=== PATIENT | male | born 1925 | race Caucasian/White ===

== ENCOUNTER 2017-03-05 05:36 | Observation (INO) | payer MEDICARE ==
[~2017-03-05] VITALS: Ht 172.7 cm; Wt 77.1 kg
[~2017-03-05 05:36] MED LIST: AEC81 PO; AMLO10TA2 PO; BETA1TAB18 PO; CHLO25TA3 PO; CLON0.1T PO; CLOP75TA32 PO; FURO40TA5 PO; HUM10VIA SQ; HYDR-4154 PO; ISOS20TA7 PO; RANO500T2 PO; SIMV20TA6 PO; TRAM50TA4 PO; TYLENOL ARTHRITIS PO
[2017-03-05] MEDS ORDERED: NITROGLYCERIN 0.4 MG SL TAB SL ONE (06:00)
[2017-03-05] MEDS ORDERED: MORPHINE SULFATE 8 MG/ML VIAL ONE (06:01)
[2017-03-05 06:09] LABS: BASOPHILS % (AUTO) 0.2 % (0.0-5.0); EOSINOPHILS % (AUTO) 1.4 % (0.0-8.0); HEMATOCRIT 32.5 % (42-54); LYMPHOCYTES % (AUTO) 23.6 % (21.0-51.0); MEAN CORPUSCULAR HGB CONC 33.3 g/dL (32.0-36.0); MEAN CORPUSCULAR VOLUME 90.1 fL (79-99); MONOCYTES % (AUTO) 18.9 % (3.0-13.0); NEUTROPHILS % (AUTO) 55.9 % (40.0-77.0); PLATELET COUNT (AUTO) 227 K/uL (130-400); RED CELL DISTRIBUTION WIDTH 14.5 % (11.0-15.5); WHITE BLOOD COUNT (AUTO) 16.3 K/uL (4.8-10.8)
[2017-03-05] MEDS ORDERED: ASPIRIN 81MG TAB.CHEW ONE (06:14)
[2017-03-05] MEDS ORDERED: SODIUM CHLORIDE 0.9% 1000ML 1,000 ML IV ONE (06:14)
[2017-03-05 06:25] LABS: CREATININE 1.6 mg/dL (0.5-1.5); POTASSIUM 4.1 mmol/L (3.5-5.1)
[2017-03-05] MEDS ORDERED: CEFTRIAXONE SODIUM 1 GM ONE (06:31)
[2017-03-05] MEDS ORDERED: ACETAMINOPHEN 325 MG TAB ONE (06:33)
[2017-03-05] MEDS ORDERED: AZITHROMYCIN 250 MG TABLET PO ONE (06:33)
[2017-03-05 06:40] LABS: BILIRUBIN,TOTAL 0.7 mg/dL (0.2-1.0); CREATINE KINASE MB 0.6 ng/mL (0.5-3.6); TOTAL PROTEIN, SERUM 7.2 g/dL (6.0-8.3)
[2017-03-05] MEDS ORDERED: FUROSEMIDE 10 MG/ML 4ML VIAL ONE (07:40)
[2017-03-05 09:01] LABS: APPEARANCE,URINE CLEAR (CLEAR); BILIRUBIN,URINE NEGATIVE (NEGATIVE); COLOR,URINE YELLOW (YELLOW); GLUCOSE, URINE (UA) NEGATIVE (NEGATIVE); KETONES,URINE NEGATIVE (NEGATIVE); LEUKOCYTE ESTERASE ,URINE NEGATIVE (NEGATIVE); NITRATE,URINE NEGATIVE (NEGATIVE); OCCULT BLOOD,URINE NEGATIVE (NEGATIVE); PH,URINE 6.5 (5.0-8.0); PROTEIN,URINE 100 (NEGATIVE); UROBILINOGEN,URINE 0.2 mg/dL (0.2-1.0)
[2017-03-05 09:08] LABS: BACTERIA,URINE Rare /HPF (None Seen); RBC,URINE None Seen /HPF (0-1); SQUAMOUS EPITHELIAL CELL,UR Rare /LPF (0-2); WBC,URINE None Seen /HPF (0-1)
[2017-03-05] MEDS ORDERED: ONDANSETRON HCL 4 MG/2 ML VIAL IV PRN (09:30)
[2017-03-05] MEDS ORDERED: MORPHINE SULFATE 2 MG/ML 1ML SYG IV PRN (09:30)
[2017-03-05] MEDS ORDERED: GUAIFENESIN-DM 200/20 MG 10 ML PO PRN (09:30)
[2017-03-05] MEDS ORDERED: MAG HYDROX/AL HYDROX/SIMETH ES 30 ML SUSP UDCUP PO PRN (09:30)
[2017-03-05] MEDS ORDERED: ACETAMINOPHEN 325 MG TAB PO PRN ×2 (09:30)
[2017-03-05] MEDS ORDERED: LACTULOSE 20 GM/30 ML UDCUP PO PRN (09:30)
[2017-03-05] MEDS ORDERED: HYDRALAZINE HCL 20 MG/ML VIAL IV PRN (09:30)
[2017-03-05] MEDS ORDERED: ACETAMINOPHEN-CODEINE 300/30MG TAB PO PRN ×2 (09:30)
[2017-03-05] MEDS ORDERED: MORPHINE SULFATE 4 MG/1ML SYG IV PRN (09:30)
[2017-03-05] MEDS ORDERED: NITROGLYCERIN 0.4 MG SL TAB SL PRN (09:30)
[2017-03-05 09:57] VITALS: BP 167/80
[2017-03-05] MEDS ORDERED: INS7030 SQ (09:59)
[2017-03-05] MEDS ORDERED: HUM10VIA SQ (09:59)
[2017-03-05] MEDS ORDERED: INSULIN HUMULIN 70/30 100 UNIT/ML 3ML SQ PRN ×2 (10:45)
[2017-03-05] MEDS ORDERED: BENZONATATE 100 MG CAPSULE PO PRN (10:45)
[2017-03-05] MEDS: DOXYCYCLINE 100MG+NS 250ML 250 ML IV SCH ×2 (10:45→21:56)
[2017-03-05] MEDS ORDERED: METHYLPREDNISOLONE SOD SUCC 125MG/2ML VIAL IV SCH (10:45)
[2017-03-05] MEDS ORDERED: POTASSIUM CHLORIDE 20MEQ/100ML 100 ML IV PRN (11:00)
[2017-03-05] MEDS ORDERED: POTASSIUM CHLORIDE 20 MEQ ERTAB PO PRN (11:00)
[2017-03-05] MEDS ORDERED: LIDOCAINE HCL-MPF 1% 2ML VIAL IVP PRN (11:00)
[2017-03-05] MEDS ORDERED: POTASSIUM CHLORIDE 10% ELIXIR 20 MEQ/15 ML UDCUP PO PRN (11:00)
[2017-03-05] MEDS: INSULIN HUMULIN R 100 UNIT/ML 3ML SQ SCH ×3 (11:19→23:08)
[2017-03-05 12:00] VITALS: BP 162/75
[2017-03-05] MEDS: IPRATROPIUM 0.5 MG/2.5 ML INH IH SCH ×3 (13:30→23:26)
[2017-03-05] MEDS: ACETYLCYSTEINE 20% 200MG/ML 4ML VIAL IH SCH ×2 (13:31→23:26)
[2017-03-05 15:24] LABS: CREATINE KINASE MB 0.6 ng/mL (0.5-3.6); TROPONIN I 0.05 ng/mL (0.00-0.06)
[2017-03-05 16:00] VITALS: BP 174/76
[2017-03-05 19:33] VITALS: BP 163/77
[2017-03-05] MEDS: METOPROLOL TARTRATE 25 MG TAB PO SCH (20:42)
[2017-03-05] MEDS: ATORVASTATIN CALCIUM 10 MG TABLET PO SCH (20:42)
[2017-03-05] MEDS: FAMOTIDINE/PF 20 MG/2 ML VIAL IV SCH (20:42)
[2017-03-05] MEDS: RANOLAZINE 500 MG TAB.SR.12H PO SCH (20:42)
[2017-03-05] MEDS: CLONIDINE HCL 0.1 MG TABLET PO SCH (21:00)
[2017-03-05] MEDS ORDERED: DOXYCYCLINE 100MG+NS 250ML 250 ML IV ONE (21:36)
[2017-03-05 23:38] VITALS: BP 133/77
[2017-03-05 23:56] LABS: CREATINE KINASE MB 0.5 ng/mL (0.5-3.6); TROPONIN I 0.06 ng/mL (0.00-0.06)
[2017-03-06] VITALS (7 sets, daily range): BP systolic 135–172; BP diastolic 65–83
[2017-03-06] MEDS: CLONIDINE HCL 0.1 MG TABLET PO SCH (04:07)
[2017-03-06 04:25] LABS: HEMATOCRIT 31.9 % (42-54); MEAN CORPUSCULAR HEMOGLOBIN 30.3 pg (27.0-33.0); MEAN CORPUSCULAR HGB CONC 33.8 g/dL (32.0-36.0); MEAN CORPUSCULAR VOLUME 89.6 fL (79-99); PLATELET COUNT (AUTO) 221 K/uL (130-400); RED BLOOD CELL COUNT(AUTO) 3.56 MIL/uL (4.50-6.20); RED CELL DISTRIBUTION WIDTH 14.8 % (11.0-15.5); WHITE BLOOD COUNT (AUTO) 11.4 K/uL (4.8-10.8)
[2017-03-06 04:37] LABS: CREATININE 1.5 mg/dL (0.5-1.5); POTASSIUM 4.1 mmol/L (3.5-5.1)
[2017-03-06] MEDS: INSULIN HUMULIN R 100 UNIT/ML 3ML SQ SCH ×4 (06:05→21:00)
[2017-03-06] MEDS: IPRATROPIUM 0.5 MG/2.5 ML INH IH SCH ×3 (06:23→18:47)
[2017-03-06] MEDS: ACETYLCYSTEINE 20% 200MG/ML 4ML VIAL IH SCH (06:23)
[2017-03-06] MEDS: ASPIRIN 325 MG TABLET PO SCH (09:00)
[2017-03-06] MEDS: FAMOTIDINE/PF 20 MG/2 ML VIAL IV SCH ×2 (09:20→21:00)
[2017-03-06] MEDS: CLOPIDOGREL BISULFATE 75 MG TAB PO SCH (09:21)
[2017-03-06] MEDS: ISOSORBIDE MONONITRATE 20 MG TABLET PO SCH (09:21)
[2017-03-06] MEDS: ENOXAPARIN SODIUM 30 MG/0.3 ML SQ SCH (09:22)
[2017-03-06] MEDS: ASPIRIN 81 MG EC TAB PO SCH (09:22)
[2017-03-06] MEDS: RANOLAZINE 500 MG TAB.SR.12H PO SCH ×2 (09:22→22:04)
[2017-03-06] MEDS: METOPROLOL TARTRATE 25 MG TAB PO SCH ×2 (09:22→22:04)
[2017-03-06] MEDS ORDERED: DOXY100T2 PO (09:36)
[2017-03-06] MEDS: DOXYCYCLINE 100MG+NS 250ML 250 ML IV SCH ×2 (10:45→23:23)
[2017-03-06] MEDS: ATORVASTATIN CALCIUM 10 MG TABLET PO SCH (22:04)
[2017-03-07] MEDS: IPRATROPIUM 0.5 MG/2.5 ML INH IH SCH ×3 (00:03→11:10)
[2017-03-07] MEDS: CLONIDINE HCL 0.1 MG TABLET PO SCH ×2 (01:16→08:28)
[2017-03-07 03:51] VITALS: BP 161/83
[2017-03-07] MEDS: INSULIN HUMULIN R 100 UNIT/ML 3ML SQ SCH ×2 (07:26→11:21)
[2017-03-07 07:30] VITALS: BP 163/81
[2017-03-07] MEDS: ASPIRIN 325 MG TABLET PO SCH (08:18)
[2017-03-07] MEDS: ASPIRIN 81 MG EC TAB PO SCH (08:28)
[2017-03-07] MEDS: METOPROLOL TARTRATE 25 MG TAB PO SCH (08:28)
[2017-03-07] MEDS: RANOLAZINE 500 MG TAB.SR.12H PO SCH (08:28)
[2017-03-07] MEDS: CLOPIDOGREL BISULFATE 75 MG TAB PO SCH (08:28)
[2017-03-07] MEDS: ENOXAPARIN SODIUM 30 MG/0.3 ML SQ SCH (08:29)
[2017-03-07] MEDS: DOXYCYCLINE 100MG+NS 250ML 250 ML IV SCH (08:29)
[2017-03-07] MEDS: ISOSORBIDE MONONITRATE 20 MG TABLET PO SCH (08:29)
[2017-03-07] MEDS: FAMOTIDINE/PF 20 MG/2 ML VIAL IV SCH (08:29)
[2017-03-07] MEDS ORDERED: FUROSEMIDE 40 MG TABLET PO SCH (09:00)
[2017-03-07 11:10] VITALS: BP 165/75
== END 2017-03-07 13:13 | disposition home or self-care (01) ==
LOC: EDH 05:36 → EDHIP 07:57 → 2AH 09:22
PROVIDERS: ADMIT Internal Medicine; ATTEND Internal Medicine
DX: I25.10 Atherosclerotic heart disease of native coronary artery without angina pectoris (principal); J20.9 Acute bronchitis, unspecified; E78.5 Hyperlipidemia, unspecified; E11.22 Type 2 diabetes mellitus with diabetic chronic kidney disease; I12.9 Hypertensive chronic kidney disease with stage 1 through stage 4 chronic kidney disease, or unspecified chronic kidney disease; N18.3 Chronic kidney disease, stage 3 (moderate); Z95.1 Presence of aortocoronary bypass graft; Z82.49 Family history of ischemic heart disease and other diseases of the circulatory system
CPT/HCPCS: 36415 ×2; 70450; 71045; 71250; 80048; 80053; 81001; 82550 ×3; 82553 ×3; 82948 ×9; 83605 ×2; 83735; 83874 ×2; 84484 ×3; 85025; 85027; 87040 ×2; 87804 ×2; 93005; 94640 ×9; 94664; 96372 ×3; 96374; 96375; 96376 ×3; 97161; 99285; G0378 ×53; G8978; G8979; G8980; G8981; G8982; G8983; J0696; J1650 ×2; J1815 ×4; J1940; J2270; J3490 ×7; J7030; J7608 ×3